=== PATIENT | male | born 1980 | race Caucasian/White ===

== ENCOUNTER 2018-03-06 02:03 | Emergency (ER) | payer OTHER ==
[~2018-03-06] VITALS: Ht 177.8 cm; Wt 90.7 kg
[2018-03-06 02:04] VITALS: BP 148/91
[2018-03-06 02:23] LABS: HEMOGLOBIN 16.3 gm/dL (14.0-18.0); MCH 29.5 pg (26.0-34.0); MCHC 34.7 g/dL (28.0-37.0); MCV 84.9 fL (80.0-100.0); RBC 5.53 mil/uL (4.50-6.00); RDW 13.2 % (10.5-14.5); WBC 8.6 thou/uL (4.0-11.0)
[2018-03-06 02:25] LABS: CALCIUM 8.5 mg/dL (8.5-10.1); POTASSIUM 3.8 mmol/L (3.5-5.1)
[2018-03-06 02:33] LABS: AMP/METHAMP Negative (Negative); BARBITURATES Negative (Negative); BENZODIAZEPINES Negative (Negative); COCAINE Negative (Negative); METHADONE Negative (Negative); OPIATES Negative (Negative); PCP Negative (Negative)
[2018-03-06] MEDS ORDERED: NORCO 5-325 TA1 EACH PO (03:01)
[2018-03-06] MEDS ORDERED: AMOXICILLIN875 MG PO (03:01)
== END 2018-03-06 03:45 | disposition home or self-care (01) ==
LOC: ER 02:03
PROVIDERS: Student in an Organized Health Care Education/Training Program
DX: M27.3 Alveolitis of jaws (principal); F10.129 Alcohol abuse with intoxication, unspecified; F17.210 Nicotine dependence, cigarettes, uncomplicated; F15.10 Other stimulant abuse, uncomplicated; Y90.7 Blood alcohol level of 200-239 mg/100 ml